=== PATIENT | male | born 1990 | race Caucasian/White ===

== ENCOUNTER 2018-11-02 05:23 | Emergency (ER) | payer MEDICAID, OTHER | END 2018-11-02 06:43 | disposition home or self-care (01) | LOC: FTE 05:23 | DX: T15.02XA Foreign body in cornea, left eye, initial encounter (principal); F17.210 Nicotine dependence, cigarettes, uncomplicated; X58.XXXA Exposure to other specified factors, initial encounter; Y92.89 Other specified places as the place of occurrence of the external cause | CPT/HCPCS: 65220; 99283-25 ==